=== PATIENT | female | born 1990 | race Caucasian/White ===

== ENCOUNTER 2017-07-31 05:42 | Observation (INO) ==
[2017-07-31] MEDS ORDERED: SODIUM CHLORIDE 0.9% 1,000 ML IV STA (06:07)
[2017-07-31] MEDS ORDERED: ONDANSETRON 4 MG/2 ML VIAL IV STA (06:07)
--- NOTE | 2017-07-31 06:11 | Emergency Department Note ---
Jesse Steven Rolonda, am scribing for, and in the presence of, Balwinder Rodriguez MD 06: 07. Jennifer Steven James D, MD, personally performed the services described in this documentation, ascribed by Annabel Molina in my presence, and it is both accurate and complete . Arrival - Arrival Chief Complaint: Abdominal / Flank Pain Stated Complaint: pain in high stomach/throwing up ED Nursing Triage Note: C/O Upper abd pain/nausea/vomiting. Onset 0400 this morning waking her up from sleep. Last BM-this morning-normal. Denies fever. Denies urinary s/s. Denies abnormal vaginal bleeding or vaginal discharge. Mode of Arrival: Ambulatory Limitations: No Limitations Source: Patient, Old Records Reviewed, RN Notes Reviewed - History of Present Illness HPI Narrative: Pt is a 26 y/o female who presents to the ED for further evaluation of upper abdominal pain with an onset of earlier this morning. Pt has a PMHx of Diverticulitis, GI problems, and Liver problems. Pt states that she awakened this morning with abdomen pain. She confirms nausea and vomiting but denies fever and hemotchezia. Pt states that the pain radiates to her back. No other complaint/pain in ED. positive anorexia. Onset (ago): hour(s) Consistency: constant Severity: mild Severity scale (1-10): 3 Date of Last Menstrual Period: Hubk-[id number]-[id number] Allergies/Adverse Reactions: Allergies Allergy/AdvReac Type Severity Reaction Status Date / Time chlorhexidine Allergy Mild ITCHING Verified 04/11/17 10:57 [From Hibiclens] clarithromycin [From Biaxin] Allergy Mild HOT FLASH, Verified 04/04/17 12:37 SOB, ITHCING Sulfa (Sulfonamide Allergy Mild HOT FLASH, Verified 04/04/17 12:37 Antibiotics) SOB ITCHING sumatriptan [From Imitrex] Allergy Mild HOT FLASH, Verified 04/04/17 12:37 SOB, ITCHING Home Medications: Home Medications Medication Instructions Recorded Confirmed Type Phentermine HCl [Adipex-P] 37.5 mg PO DAILY 04/04/17 07/31/17 History Estradiol [Estrace Tab] 1 mg PO DAILY 07/31/17 07/31/17 History Leuprolide IM (3 Month) [Lupron 22.5 mg IM Q90D 07/31/17 07/31/17 History Depot (3 Month)] Spironolactone 25 mg PO DAILY 07/31/17 07/31/17 History medroxyPROGESTERone TAB [Provera] 5 mg PO DAILY 07/31/17 07/31/17 History Review of System - Review of System 12 point system: reviewed and no additional remarkable complaints except as stated - Review of System Constitutional: Absent: chills Eyes: Absent: discharge Head/Ears/Nose/Throat: Absent: earache Respiratory: Absent: cough Cardiovascular: Absent: chest pain Gastrointestinal: Present: abdominal pain, nausea, vomiting Genitourinary female: Absent: dysuria Musculoskeletal: Absent: arm pain Skin: Absent: rash Neurological: Absent: headache Psychiatric: Absent: anxiety Endocrine: Absent: cold intolerance Hematological/Lymphatic: Absent: easy bleeding Allergic/Immunologic: Absent: facial swelling Medical,Surgical,& Family Hx - Medical History Psychological: History of: Anxiety Disorders, Depression Neurology: History of: Migraine (FREQUENT 4-[address] MORALES; SPINAL TAPS X2 FOR THIS) No history of: Seizures HEENT: History of: Eye Problem (GLASSES) Endocrine: History of: Dyslipidemia (BORDERLINE.) Respiratory: No history of: Respiratory Problems (FLU VAC- NO; PNEU VAC- NO.) Gastrointestinal: History of: Diverticulitis/ Diverticulosis, GERD, Liver Problems (LIVER ENZYMES ELEVATED.), GI Problems (HIATAL HERNIA) Musculoskeletal: History of: Musculoskeletal Problems (LT ARM FX) Reproductive: History of: Reproductive Problems (PCOS) Other: No history of: Anesthesia Reactions - Surgical History HEENT Surgeries: Surgical HX of: Tonsilectomy & Adenoidectomy Abdominal Surgeries: Surgical HX of: Colonoscopy, EGD (DILATION) - Family History Family History: Reports;: Family Cancer (MGM), Family Diabetes (PGM, MGF), Family Heart Disease (FATHER), Family Stroke (MGM) - Social History Smoking Status: Never smoker Frequency of Alcohol Use: None Type of Drug Use: None Exam Vital Signs: Vital Signs Temperature 98.8 F 07/31/17 06:10 Pulse Rate 83 07/31/17 06:10 Respiratory Rate 18 07/31/17 06:10 Blood Pressure 116/83 07/31/17 06:10 O2 Sat by Pulse Oximetry 100 07/31/17 05:48 GENERAL: This is a well-nourished well-developed white female morbidly obese in no apparent distress. VITAL SIGNS: Reviewed HEENT: Head is atraumatic and normocephalic. Pupils are equal round react to light. Extraocular movements are intact. Oropharynx is benign with moist mucous membranes. NECK: Neck is soft and supple without tenderness. There are no masses. There is no lymphadenopathy. LUNGS: Lungs are clear to auscultation. Chest rises symmetrically. There is no chest wall tenderness. CV: Heart is regular rate and rhythm without murmurs rubs or gallops. ABDOMEN: Tender to palpation right upper quadrant without rebound or guarding. There are no abdominal abnormal masses palpated. There is no organomegaly. Bowel sounds are present and active. SKIN: Skin is warm and dry. No rash. EXTREMITIES: Patient has full range of motion without tenderness. There is no pedal edema. NEUROLOGIC: Awake alert and oriented 4. Cranial nerves II through XII are grossly intact. Motor is 5 over 5 in all extremities bilaterally. Course - Consultations Consultation #1: Discussed with Dr. Dawn. Patient will be admitted to his service. Initial orders written for him. Time: 07:07 Results - Labs CBC & BMP: 07/31/17 06:12 07/31/17 06:12 Lab Results: I have reviewed the patients labs - Diagnostic Findings Procedure: Abdominal x-ray: image reviewed by me (Nonspecific gas pattern, no free air.), Chest x-ray: image reviewed by me (No infiltrates), Ultrasound: report reviewed by me (Gallbladder ultrasound: Sludge in gallbladder) Disposition Clinical Impression: Right upper quadrant abdominal abscess, Cholecystitis
[2017-07-31 06:21] LABS: Basophils # 0.1 10*3/uL (0.0-0.2); Basophils % 0.5 % (0.0-0.8); Eosinophils # 0.1 10*3/uL (0.0-0.87); Eosinophils % 0.5 % (0.00-10.9); Hemoglobin 14.3 GM/DL (12.0-16.0); Immature Granulocytes % 0.5 %; Immature Granulocytes Absolute 0.06 #; Lymphocytes # 1.7 10*3/uL (1.4-4.0); Lymphocytes % 14.7 % (21.3-54.2); Mean Corpuscular HGB Conc 35.8 GM/DL (32-36); Mean Corpuscular Hemoglobin 32 PG (27-34); Mean Corpuscular Volume 90.3 FL (87-102); Mean Platelet Volume 10.1 FL (9.6-12.0); Monocytes # 0.5 10*3/uL (0.11-0.8); Monocytes % 4.6 % (1.7-12.7); Neutrophils # 9.2 10*3/uL (1.4-7.4); Neutrophils % 79.2 % (38.7-73.9); Platelet Count 220 T/CUMM (130-400); Red Blood Count 4.43 MC/CUMM (3.8-5.5); Red Cell Distribution Width 12.7 % (9.3-17.3); White Blood Count 11.7 T/CUMM (4-12)
[2017-07-31] MEDS ORDERED: ONDANSETRON 4 MG/2 ML VIAL ONE ×2 (06:32→10:01)
[2017-07-31 06:48] LABS: Apearance,Urine Slightly Hazy (Clear); Bacteria,Urine Occasional /HPF (Few); Bilirubin,Urine Negative (Negative); Blood, Urine Negative (Negative); Glucose,Urine (UA) Negative (Negative); Ketones,Urine Negative (Negative); Mucus,Urine Few /LPF (Occasional); Nitrite,Urine Negative (Negative); Protein,Urine Negative; RBC,Urine 3 /HPF (0-4); Squamous Epithelial Cell,Urine Occasional /HPF (0-10); Urine Color Yellow (Yellow); Urine Specific Gravity 1.029 (1.001-1.035); WBC,Urine 65 /HPF (0-6)
[2017-07-31 06:51] LABS: Albumin 3.8 G/DL (3.4-5.0); Bilirubin,Total 0.6 MG/DL (0.2-1.0); Calcium 9.1 MG/DL (8.5-10.1); Osmolality,Calculated 277.5 MOS/KG (273-304); Potassium 4.2 MMOL/L (3.5-5.1); Total Protein 7.4 G/DL (6.4-8.3)
--- NOTE | 2017-07-31 07:48 | XRay Report ---
XR abdomen 2V Indication: Generalized abdominal pain Comparison: KUB dated March 25, 2013 Technique: Frontal views of the abdomen in the supine and upright position. Findings: Nonspecific nonobstructive bowel gas pattern. No free intraperitoneal air. Moderate amount of fecal material within the proximal colon could reflect constipation. Presumed pelvic phleboliths. Visualized osseous and surrounding soft tissue structures demonstrate no acute abnormality. Lung bases clear. IMPRESSION: As above. PROCEDURE INTERPRETED AT [facility] DEPARTMENT OF RADIOLOGY Final Report Signed by: Dr Santino Bain
[2017-07-31 07:55] LABS: Apearance,Urine CLEAR (Clear); Bilirubin,Urine Negative (Negative); Blood, Urine Negative (Negative); Glucose,Urine (UA) Negative (Negative); Ketones,Urine Negative (Negative); Mucus,Urine Occasional /LPF (Occasional); Nitrite,Urine Negative (Negative); Protein,Urine Negative; RBC,Urine 3 /HPF (0-4); Squamous Epithelial Cell,Urine Occasional /HPF (0-10); Urine Color Yellow (Yellow); Urine Specific Gravity 1.019 (1.001-1.035); WBC,Urine 18 /HPF (0-6)
--- NOTE | 2017-07-31 08:01 | Ultrasound Report ---
US gallbladder Indication: Right upper quadrant abdominal pain. Comparison: CT abdomen pelvis March 25, 2013. Technique: Multiple longitudinal and transverse real-time sonographic images of the right upper quadrant of the abdomen are obtained. Findings: The liver measures 18.5 cm and demonstrates normal echogenicity without focal abnormality on submitted images. Gallbladder wall appears somewhat thickened. Gallbladder is not significantly distended but is upper limits in size. Small debris noted within the gallbladder lumen suspicious for sludge or nonshadowing stones. Sonographic Dacosta sign reportedly positive. Findings are suspicious for acute cholecystitis. The common duct measures 0.9 cm in diameter and there is no evidence of significant intrahepatic ductal dilation. Right kidney measures 11.1 cm. Pancreas obscured by bowel gas. IMPRESSION: Findings are suspicious for acute cholecystitis. The common duct is somewhat dilated. Consider MRCP or ERCP for further evaluation. Findings discussed with Dr. Rodriguez at time of dictation. PROCEDURE INTERPRETED AT [facility] DEPARTMENT OF RADIOLOGY Final Report Signed by: Dr Santino Bain
[2017-07-31] MEDS ORDERED: ACETAMINOPHEN 325 MG TABLET PO PRN (08:08)
--- NOTE | 2017-07-31 08:53 | XRay Report ---
Exam: XR chest 1V portable Date: 07/31/2017 6:08 AM Indication: Abdominal pain Comparison: None Technical: AP Findings: The heart, lungs, mediastinum and bony structures reveal no acute findings. Small tiny granuloma suspected in the right perihilar region Impression: 1. No acute cardiopulmonary pathology PROCEDURE INTERPRETED AT [facility] DEPARTMENT OF RADIOLOGY Final Report Signed by: Dr. Nitesh Freedman
[2017-07-31] MEDS: ONDANSETRON 4 MG/2 ML VIAL IV PRN ×2 (09:20→17:04)
[2017-07-31] MEDS: PANTOPRAZOLE 40 MG TABLET PO SCH (09:20)
--- NOTE | 2017-07-31 09:20 | General Surg History&Physical ---
Assessment and Plan (1) Cholecystitis Status: Acute Assessment and plan: Patient appears to have acute cholecystitis. Based on chart review, there is no evidence of intra-abdominal abscess and the patient has no leukocytosis. We will continue IV antibiotics, n.p.o. status, and IV fluids. Patient will require cholecystectomy and we have discussed attempted laparoscopic and risks were opened especially with her history of endometriosis and recent laparoscopic procedure. The rest of the procedures have been reviewed including not limited to infection, bleeding, injury to adjacent organ, wound healing complications, scarring, bowel obstruction, the need for additional procedures, blood clots of the legs and lower lungs which could be life- threatening. Patient with worsening of these risks and agrees to proceed when appropriate. Dr. Diaz evaluation to follow determine whether ERCP required prior. Current Visit: Yes (2) UTI (urinary tract infection) Status: Acute Assessment and plan: Patient is asymptomatic. Culture to follow. Patient is on IV Unasyn. Current Visit: Yes (3) Endometriosis Status: Acute Assessment and plan: Resume home medication regimen. Current Visit: Yes (4) Prophylactic measure Status: Acute Assessment and plan: GI: PPI daily DVT prophylaxis: Mechanical orders in place. Mobilize. Will hold pharmacologic measures until surgical decisions are made. Current Visit: Yes History of Present Illness Chief complaint: RUQ pain History of present illness: Ms. Araujo is a 26 year old female with past medical history diverticulitis, endometriosis, status post recent diagnostic laparoscopic with aspiration of the right simple ovarian cyst performed on 04/11/2017 who presented to the emergency department with approximately 1 day history of right upper quadrant and epigastric pain associated nausea and vomiting; no fever, chills, riders, or diarrhea noted. She has no history of known cholelithiasis or biliary colic , although she reports approximately 2 months ago she had an episode after eating pizza where she had nausea vomiting and epigastric pain for approximately 1 day which resolved. Home Medications Medication Instructions Recorded Confirmed Type Phentermine HCl [Adipex-P] 37.5 mg PO DAILY 04/04/17 07/31/17 History Estradiol [Estrace Tab] 1 mg PO DAILY 07/31/17 07/31/17 History Leuprolide IM (3 Month) [Lupron 22.5 mg IM Q90D 07/31/17 07/31/17 History Depot (3 Month)] Spironolactone 25 mg PO DAILY 07/31/17 07/31/17 History medroxyPROGESTERone TAB [Provera] 5 mg PO DAILY 07/31/17 07/31/17 History Allergies Allergy/AdvReac Type Severity Reaction Status Date / Time chlorhexidine Allergy Mild ITCHING Verified 04/11/17 10:57 [From Hibiclens] clarithromycin [From Biaxin] Allergy Mild HOT FLASH, Verified 04/04/17 12:37 SOB, ITHCING Sulfa (Sulfonamide Allergy Mild HOT FLASH, Verified 04/04/17 12:37 Antibiotics) SOB ITCHING sumatriptan [From Imitrex] Allergy Mild HOT FLASH, Verified 04/04/17 12:37 SOB, ITCHING Medical,Surgical,& Family Hx - Medical History Psychological: History of: Anxiety Disorders, Depression Neurology: History of: Migraine (FREQUENT 4-[address] MORALES; SPINAL TAPS X2 FOR THIS) No history of: Seizures HEENT: History of: Eye Problem (GLASSES) Endocrine: History of: Dyslipidemia (BORDERLINE.) Respiratory: No history of: Respiratory Problems (FLU VAC- NO; PNEU VAC- NO.) Gastrointestinal: History of: Diverticulitis/ Diverticulosis, GERD, Liver Problems (LIVER ENZYMES ELEVATED.), GI Problems (HIATAL HERNIA) Musculoskeletal: History of: Musculoskeletal Problems (LT ARM FX) Reproductive: History of: Reproductive Problems (PCOS; on hormone therapy) Other: No history of: Anesthesia Reactions - Surgical History HEENT Surgeries: Surgical HX of: Tonsilectomy & Adenoidectomy Abdominal Surgeries: Surgical HX of: Colonoscopy, EGD (DILATION) - Family History Family History: Reports;: Family Cancer (MGM), Family Diabetes (PGM, MGF), Family Heart Disease (FATHER), Family Stroke (MGM) - Social History Smoking Status: Never smoker Frequency of Alcohol Use: None Type of Drug Use: None Exam - Constitutional Vitals: Period Temp Pulse Resp BP Sys/Barclay Pulse Ox Last 24 Hr 98.8 F-98.8 F 83-83 18-18 116-116/83-83 100 General appearance: no acute distress, morbidly obese - Eye Eye exam: Absent: scleral icterus - Neck Neck exam: Present: normal inspection, trachea midline - Respiratory Respiratory exam: Present: clear to auscultation bilaterally - Cardiovascular Cardiovascular exam: Present: RRR - GI/Abdominal GI/Abdominal exam: Present: Dacosta's sign, tenderness (Right-sided abdominal pain and increase in the right upper quadrant; no peritoneal signs), soft. Absent: distended, firm, guarding - Neurological Exam Neurological exam: Present: alert, oriented X3 Speech: Present: normal - Skin Skin exam: Present: normal color - Constitutional Constitutional: Present: as per HPI - Cardiovascular Cardiovascular: Absent: chest pain at rest, chest pain with activity, dyspnea on exertion - Respiratory Respiratory: Absent: cough, wheezing - Gastrointestinal Gastrointestinal: Present: as per HPI. Absent: hematemesis, hematochezia - Genitourinary Genitourinary: Absent: dysuria, flank pain Hematologic/Lymphatic: Absent: easy bleeding, easy bruising Results - Labs CBC & BMP: 07/31/17 06:12 07/31/17 06:12 - Diagnostic Findings Procedure: Chest x-ray: image reviewed by me, report reviewed by me, KUB x-ray: image reviewed by me, report reviewed by me, Ultrasound: report reviewed by me ( Gallbladder ultrasound with out calculus noted; evidence of sludge; evidence of gallbladder thickening; CBD measured 9 mm)
[2017-07-31] MEDS: LACTATED RINGERS 1,000 ML IV SCH ×2 (09:27→17:16)
[2017-07-31] MEDS ORDERED: PROPOFOL 200 MG/20 ML VIAL IV ONE (10:01)
[2017-07-31] MEDS ORDERED: LIDOCAINE 100 MG/5 ML SYRINGE ONE (10:01)
[2017-07-31] MEDS ORDERED: KETOROLAC 30 MG/1 ML VIAL ONE (10:01)
[2017-07-31] MEDS ORDERED: ROCURONIUM 100 MG/10 ML VIAL IV ONE (10:01)
[2017-07-31] MEDS ORDERED: GLYCOPYRROLATE 0.4 MG/2 ML VIAL ONE (10:01)
[2017-07-31] MEDS ORDERED: LIDOCAINE 1%/EPI INJ 20 ML VIAL ONE (13:46)
[2017-07-31] MEDS ORDERED: BUPIVACAINE MPF 0.25% /EPI 30 ML VIAL ONE (13:46)
[2017-07-31] MEDS ORDERED: TISSUE ADHESIVE 1 EACH APPLICATOR TOP ONE (13:46)
[2017-07-31] MEDS ORDERED: AMPICILLIN/SULBACTAM 3,000 MG VIAL ONE (14:26)
--- NOTE | 2017-07-31 15:42 | Anesthesia Post-Op ---
Anesthesia Post OP - Post Ansesthetic Evaluation Patient seen in post op: Yes Resp: within normal limits CV: within normal limits Mental: within normal limits (pt sedate) Temp: within normal limits [id number]: within normal limits Nausea and Vomiting: within normal limits Pain: within normal limits
[2017-07-31] MEDS ORDERED: SEVOFLURANE 1 UNIT/15 MINUTE INH ONE (15:43)
[2017-07-31] MEDS ORDERED: ePHEDrine 50 MG/ML AMP ONE (15:44)
[2017-07-31] MEDS ORDERED: MIDAZOLAM 2 MG/2 ML VIAL ONE (15:44)
[2017-07-31] MEDS ORDERED: fentaNYL 100 MCG/2 ML VIAL ONE (15:44)
[2017-07-31] MEDS ORDERED: ACETAMINOPHEN 1,000 MG/100 ML VIAL IV ONE (15:44)
--- NOTE | 2017-07-31 15:55 | Operative Note ---
Date of procedure: 07/31/17 Pre-op diagnosis: Acute cholecystitis Post-op diagnosis: same Procedure: Procedure performed: Laparoscopic cholecystectomy with intraoperative cholangiogram Procedure in detail: After informed consent was obtained, patient was taken operating suite lights upon the operating table. After general anesthesia was induced the abdomen was prepped and draped in usual sterile fashion. After procedural pause, local anesthetic infiltrated in the skin and subcutaneous tissue just above the umbilicus. Incision made and dissection carried down through skin and soft tissue. Fascia grasped with Energy's and elevated fascial incision was made in the abdominal cavity was entered bluntly. Finger sweep revealed no adhesions. Martin trocar placed under direct visualization. Pneumoperitoneum achieved. The camera inserted bowel mesentery inspected found to be free of any violation. Next the patient was placed in reverse Trendelenburg position rotated to the left. 2 5 mm trochars placed in the right upper quadrant 11 mm subxiphoid trocar was placed all under visualization. Gallbladder identified. It was dilated and mildly edematous. There were a few filmy adhesions to the surface of the gallbladder which were bluntly dissected away. The gallbladder was then able to be grasped and retracted superiorly. Infundibulum the gallbladder retracted toward the right hip. Dissection carried out from lateral to medial approach and the triangle of David. The cystic duct and cystic artery were identified and isolated. Using a critical view technique these only 2 structures entering the gallbladder. Clip was placed the junction of the cystic duct neck of the gallbladder and partial transection made on cystic duct. Cholangiocatheter inserted and secured in place and intraoperative glandular and performed. Cystic duct common duct intra-and extrahepatic ducts all filled with no filling defects identified. Contrast was seen entering small bowel. Cholangiocatheter removed and 2 clips placed on the cystic duct just distal to the partial transection the transection completed. Cystic artery was triple clipped and transected how long the gallbladder wall. Gallbladder was then removed from the gallbladder fossa using hook cautery and placed in Endo Catch sac and removed to the Martin trocar site. Pneumoperitoneum reachieved and right upper quadrant thoroughly irrigated and suctioned. Irrigant remained clear. There is excellent hemostasis. The clips inspected found to be intact no leakage of bilious or sanguinous fluid. Trochars were removed his abdomen desufflated. Fascia at the Martin trocar site closed using 0 Vicryl [id number] interrupted suture. Wounds were thoroughly irrigated and suctioned the deep dermal layer closed with 3-0 Vicryl. 4-0 Monocryl used to close skin. Sterile dressings applied. Patient was extubated and taken recovery room in stable condition. All lap and needle counts correct at the end of the case. Anesthesia: GETA Surgeon / Physician: Chan Diaz Estimated blood loss: other (Less than 10 cc) Specimens: other (Gallbladder) Condition: stable Disposition: PACU Results - Labs CBC & BMP: 07/31/17 06:12 07/31/17 06:12 Discharge Plan - Discharge Medications No Action Phentermine HCl [Adipex-P] 37.5 mg PO DAILY Estradiol [Estrace Tab] 1 mg PO DAILY medroxyPROGESTERone TAB [Provera] 5 mg PO DAILY Spironolactone 25 mg PO DAILY Leuprolide IM (3 Month) [Lupron Depot (3 Month)] 22.5 mg IM Q90D - Follow Up or Referral - Forms/Instructions
[2017-07-31] MEDS: AMPICILLIN/SULBACTAM 3,000 MG in SODIUM CHLORIDE 0.9% 100 ML IV SCH ×2 (20:00→22:14)
[2017-07-31] MEDS: MORPHINE 2 MG/1 ML SYRINGE IV PRN (20:35)
[2017-08-01] MEDS: MORPHINE 2 MG/1 ML SYRINGE IV PRN (03:52)
[2017-08-01] MEDS: AMPICILLIN/SULBACTAM 3,000 MG in SODIUM CHLORIDE 0.9% 100 ML IV SCH (06:06)
[2017-08-01] MEDS: LACTATED RINGERS 1,000 ML IV SCH (06:07)
[2017-08-01 06:29] LABS: Basophils % 0.3 % (0.0-0.8); Eosinophils # 0.1 10*3/uL (0.0-0.87); Eosinophils % 0.8 % (0.00-10.9); Hematocrit 33.9 VOL% (35.7-47.0); Immature Granulocytes % 0.3 %; Immature Granulocytes Absolute 0.03 #; Lymphocytes # 2.5 10*3/uL (1.4-4.0); Lymphocytes % 25.3 % (21.3-54.2); Mean Corpuscular HGB Conc 35.4 GM/DL (32-36); Mean Corpuscular Hemoglobin 32 PG (27-34); Mean Corpuscular Volume 90.9 FL (87-102); Mean Platelet Volume 10.3 FL (9.6-12.0); Monocytes # 0.6 10*3/uL (0.11-0.8); Monocytes % 5.9 % (1.7-12.7); Neutrophils # 6.7 10*3/uL (1.4-7.4); Neutrophils % 67.4 % (38.7-73.9); Platelet Count 171 T/CUMM (130-400); Red Blood Count 3.73 MC/CUMM (3.8-5.5); Red Cell Distribution Width 12.9 % (9.3-17.3); White Blood Count 9.9 T/CUMM (4-12)
--- NOTE | 2017-08-01 08:09 | Fluoroscopy Report ---
[place] cholangiogram in surgery Indication: Pain Comparison: None Technique: 7 intraoperative fluoroscopic views of the abdomen obtained. Fluoroscopy time 27 seconds. Findings: Images submitted during intraoperative cholangiogram. Contrast material noted within the common and intrahepatic ducts. Please see operative report for details. IMPRESSION: As above. PROCEDURE INTERPRETED AT [facility] DEPARTMENT OF RADIOLOGY Final Report Signed by: Dr Santino Bain
--- NOTE | 2017-08-01 09:08 | Discharge Summary ---
Hospital Course - Hospital Course Hospital Course: Patient was admitted and underwent laparoscopic cholecystectomy. This morning she is postop day 1 and doing well. Her pain is been controlled. She has been ambulating and doing her incentive spirometry well. She is tolerating a regular diet without any nausea or vomiting. She has mild pain at the incisions and right upper quadrant as expected. On exam her abdomen is soft appropriately tender nondistended with no peritoneal signs. Incisions look good with no sign of infection. She would like to go home today. Plan for discharge. She will go home with Roff. I will see her in 2 weeks. Discharge instructions were given. Specialty Discharge - Follow Up or Referrals Follow up with: Chan Diaz MD [Physician] - Discharge Plan - Discharge Medications No Action Phentermine HCl [Adipex-P] 37.5 mg PO DAILY Estradiol [Estrace Tab] 1 mg PO DAILY medroxyPROGESTERone TAB [Provera] 5 mg PO DAILY Spironolactone 25 mg PO DAILY Leuprolide IM (3 Month) [Lupron Depot (3 Month)] 22.5 mg IM Q90D - Follow Up or Referral Follow Up: Chan Diaz MD [Physician] - - Forms/Instructions Instructions: Laparoscopic Cholecystectomy (DC) Exam - Constitutional Vitals: Period Temp Pulse Resp BP Sys/Barclay Pulse Ox Last 24 Hr 97.2 F-98.6 F 58-86 14-20 103-140/53-84 96-100 Discharge Results Procedures and tests throughout hospitalization: Pending Orders 07/31/17 Urine Culture Routine Urine Culture Routine Labs on day of discharge: Labs from last 24 hours 08/01/17 06:14 WBC 9.9 RBC 3.73 L Hgb 12.0 D Hct 33.9 L MCV 90.9 MCH 32 MCHC 35.4 RDW 12.9 Plt Count 171 D MPV 10.3 Neut % (Auto) 67.4 Lymph % (Auto) 25.3 Wilkinson % (Auto) 5.9 Eos % (Auto) 0.8 Baso % (Auto) 0.3 Neut # (Auto) 6.7 Lymph # (Auto) 2.5 Wilkinson # (Auto) 0.6 Eos # (Auto) 0.1 Baso # (Auto) 0.0 Immature Gran % 0.3 Nucleated RBC % 0.0 Immature Gran # 0.03 Nucleated RBCs # 0.00 Immature Plt Fraction 0.0 DS: Provider Date of admission: 07/31/17 07:07 Primary care physician: . No PCP Attending physician on admission: Chan Diaz MD Discharging clinician: Chan Diaz MD
[2017-08-01] MEDS: PANTOPRAZOLE 40 MG TABLET PO SCH (09:23)
[2017-08-01 11:01] VITALS: BP 119/66
--- NOTE | 2017-08-02 11:17 | Pathology Report from [facility] ---
[facility] ACCESSION # : [id number] PATIENT NAME : Licha Gifford ORDERING DR : Chan Diaz MD CLINICAL HX: Acute cholecystitis POST-OP DX: Same SPECIMEN INFO: Gallbladder GROSS DESCRIPTION: The specimen is received in formalin labeled with the patients name and consists of an intact gallbladder measuring 8.3 x 2.2 cm. The serosa is smooth and stained with green-brown bile. The wall averages 0.3 cm in thickness. The mucosal surface displays diffuse yellow streaking with multiple tiny yellow stones noted measuring 4.0 x 2.0 cm in aggregate. Nurse Private Duty sections submitted in one cassette. DIAGNOSIS FOR LICHA GIFFORD: GALLBLADDER, CHOLECYSTECTOMY: Chronic cholecystitis. Cholelithiasis. COLLECTED DATE: 08/01/2017 [facility] REPORT DATE: 08/02/2017 ELECTRONICALLY SIGNED BY: Karla Winchester M.D. 08/02/2017 - 9:35:24 MTDD
== END 2017-08-01 14:08 | disposition home or self-care (01) ==
LOC: N.ED 05:42 → INTOOBSV 07:07 → N.EDINP 07:49 → N.3E 08:08
PROVIDERS: ADMIT Surgery; ATTEND Surgery
PROC: LAPCHOL (2017-07-31 14:30)